=== PATIENT | male | born 1990 | race Caucasian/White ===

== ENCOUNTER 2017-09-28 19:44 | Emergency (ER) | payer SELFPAY ==
[~2017-09-28] VITALS: Ht 180.3 cm; Wt 75.1 kg
[2017-09-28 19:48] VITALS: BP 130/63; PULSE 81; RESP 18; TEMP 98.7; O2SAT 98
[2017-09-28] MEDS ORDERED: LYRI150C PO ×2 (20:02→20:14)
--- NOTE | 2017-09-28 20:16 | PD ---
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 Patient states his medications were lost with his luggage by the airline. He is just requesting a refill of his Lyrica 150 twice a day. He has no other problems. He has no known drug allergies. PFSH Past Medical History Diminished Hearing: No Medical other: Yes (neuropathy rt arm) Immunizations Current: Yes Tetanus Vaccination: Unknown Influenza Vaccination: Yes Past Surgical History Oral Surgery: Yes Social History Alcohol Use: No Tobacco Use: Yes ([place]) Substance Use: No Allergies-Medications (Allergen,Severity, Reaction): Coded Allergies: No Known Allergies (Unverified , 09/28/17) Reported Meds & Prescriptions Reported Meds & Active Scripts Active Lyrica (Pregabalin) 150 Mg Cap 150 Mg PO BID Review of Systems Except as stated in HPI: all other systems reviewed are Neg General / Constitutional: No: Fever Eyes: No: Visual changes HENT: No: Headaches Cardiovascular: No: Chest Pain or Discomfort Respiratory: No: Shortness of Breath Gastrointestinal: No: Abdominal Pain Genitourinary: No: Dysuria Musculoskeletal: Positive: Myalgias, Pain (see history of present illness.) Skin: No Rash Neurologic: No: Weakness Psychiatric: No: Depression Endocrine: No: Polydipsia Hematologic/Lymphatic: No: Easy Bruising Physical Exam Narrative GENERAL: Patient is in no acute distress. SKIN: Warm and dry. Normal color. Normal turgor. HEAD: Atraumatic. Normocephalic. EYES: Pupils equal and round. No scleral icterus. No injection or drainage. ENT: No nasal bleeding or discharge. Mucous membranes pink and moist. Thanks is clear. Airway is patent NECK: Trachea midline. Supple nontender. CARDIOVASCULAR: Regular rate and rhythm. RESPIRATORY: No accessory muscle use. MUSCULOSKELETAL: Extremities without clubbing, cyanosis, or edema. No obvious deformities. NEUROLOGICAL: Awake and alert. No obvious cranial nerve deficits. Motor grossly within normal limits. Five out of 5 muscle strength in the arms and legs. Normal speech. PSYCHIATRIC: Appropriate mood and affect; insight and judgment normal. Data Data Last Documented VS Vital Signs Date Time Temp Pulse Resp B/P (MAP) Pulse Ox O2 Delivery O2 Flow Rate FiO2 09/28/17 19:48 98.7 81 18 130/63 (85) 98 Orders Orders Ed Discharge Order (09/28/17 20:16) MDM Medical Decision Making Medical Screen Exam Complete: Yes Emergency Medical Condition: Yes Differential Diagnosis Medication refill. Neuralgia. Psychiatric symptoms. Narrative Course Patient is given a refill Lyrica 150 mg twice a day #30. Patient follow-up with local primary care physician for further refills as needed. Diagnosis Primary Impression: Encounter for medication refill Referrals: [facility] Primary Care Physician Patient Instructions: General Instructions Additional Instructions: Patient is given a refill Lyrica 150 mg twice a day #30. Patient follow-up with local primary care physician for further refills as needed. Med/Other Pt SpecificInfo: Prescription(s) given Scripts Pregabalin (Lyrica) 150 Mg Cap 150 MG PO BID, #30 CAP Prov: Ariel Brown MD 09/28/17 Disposition: 01 DISCHARGE HOME Condition: Stable Christian Gipson Sep 28, 2017 20:15
== END 2017-09-28 20:21 | disposition home or self-care (01) ==
LOC: PHEFT 19:44
DX: Z76.0 Encounter for issue of repeat prescription (principal)
CPT/HCPCS: 99281

== ENCOUNTER 2017-10-01 13:59 | Emergency (ER) | payer SELFPAY ==
[~2017-10-01] VITALS: Ht 180.3 cm; Wt 75.0 kg
[~2017-10-01 13:59] MED LIST: LYRI150C PO
[2017-10-01 14:19] VITALS: BP 124/57; PULSE 66; RESP 16; TEMP 97.9; O2SAT 97
--- NOTE | 2017-10-02 09:59 | PD ---
HPI Chief Complaint: Medication Refill Request Time Seen by Provider: 14:50 Travel History International Travel<30 days: No Contact w/Intl Traveler<30days: No Traveled to known affect area: No History of Present Illness HPI 27-year-old male with history presents emergency department requesting a refill of his gabapentin. He reports he takes a gabapentin for his neuropathy. He was seen on 09/28/17 in the emergency department and given a refill of Lyrica. Today he reports that it wasn't Lyrica he needed it was gabapentin. He does not have a local doctor. PFS Past Medical History Narrative Medical Neuropathy and chronic pain Diminished Hearing: No Medical other: Yes (NEUROPATHY) Immunizations Current: Yes Past Surgical History Oral Surgery: Yes Social History Alcohol Use: No Tobacco Use: Yes ([place]) Substance Use: No Allergies-Medications (Allergen,Severity, Reaction): Coded Allergies: No Known Allergies (Unverified , 10/01/17) Reported Meds & Prescriptions Reported Meds & Active Scripts Active Lyrica (Pregabalin) 150 Mg Cap 150 Mg PO BID Review of Systems Except as stated in HPI: all other systems reviewed are Neg General / Constitutional: No: Fever Eyes: No: Visual changes HENT: No: Headaches Cardiovascular: No: Chest Pain or Discomfort Respiratory: No: Shortness of Breath Gastrointestinal: No: Abdominal Pain Genitourinary: No: Dysuria Physical Exam Narrative GENERAL: Alert well-appearing male. SKIN: Warm and dry. HEAD: Normocephalic. EYES:No injection or drainage. NECK: Supple, trachea midline. MUSCULOSKELETAL: No cyanosis, or edema. Data Data Last Documented VS Vital Signs Date Time Temp Pulse Resp B/P (MAP) Pulse Ox O2 Delivery O2 Flow Rate FiO2 10/01/17 14:19 97.9 66 16 124/57 79 97 MDM Medical Decision Making Medical Screen Exam Complete: Yes Emergency Medical Condition: Yes Differential Diagnosis Medication refill, medication noncompliance, Narrative Course 27-year-old male here requesting refill of his gabapentin. Patient was seen several days prior for same. A medical screening exam was performed: At the time of evaluation the presenting medical condition was determined not to be of an emergent nature. The patient was given the option of receiving additional care, but declined. Patient was given options for additional community resources from which to obtain care. The Patient Has Been advised to seek medical attention for their presenting complaint. The patient has been advised to return to the ER at any time if an emergent condition develops. Diagnosis Primary Impression: Encounter for medical screening examination Referrals: [facility] Disposition: 01 DISCHARGE HOME Condition: Stable Judit Patel [facility] Oct 02, 2017 09:59
== END 2017-10-01 15:02 | disposition left against medical advice (07) ==
LOC: PHEFT 13:59
DX: Z76.0 Encounter for issue of repeat prescription (principal); G62.9 Polyneuropathy, unspecified; G89.29 Other chronic pain; F17.290 Nicotine dependence, other tobacco product, uncomplicated
CPT/HCPCS: 99281

== ENCOUNTER 2017-10-03 17:39 | Emergency (ER) | payer SELFPAY ==
[~2017-10-03] VITALS: Ht 180.3 cm; Wt 75.0 kg
[2017-10-03 17:39] VITALS: BP 120/58; PULSE 62; RESP 12; TEMP 98.6; O2SAT 99
[2017-10-03] MEDS ORDERED: NEUR800T PO (17:56)
--- NOTE | 2017-10-03 18:25 | PD ---
HPI . Hand pain Chief Complaint: Pain: Acute or Chronic Time Seen by Provider: 18:02 Travel History International Travel<30 days: No Contact w/Intl Traveler<30days: No Traveled to known affect area: No History of Present Illness HPI This patient presents with chronic right hand pain. He states that he has neuropathy in his hand. He reports that he just moved here from [place] a week ago. He is out of his Neurontin. He was seen here on 09/28 and requested a prescription for Lyrica which was provided to him. The patient states that he now realizes that Lyrica was his old medication and that he is currently on Neurontin for his feet. The patient presented back on 10/02 requesting the prescription for Neurontin. He was made an [facility] no. [facility] Neurontin. History Social History Alcohol Use: No Tobacco Use: No Allergies-Medications (Allergen,Severity, Reaction): Coded Allergies: No Known Allergies (Unverified , 10/03/17) Reported Meds & Prescriptions Reported Meds & Active Scripts Active Reported Neurontin (Gabapentin) 800 Mg Tab 800 Mg PO TID Review of Systems Except as stated in HPI: all other systems reviewed are Neg Musculoskeletal: Positive: Pain Neurologic: Positive: Paresthesia Physical Exam Narrative GENERAL: Awake and alert and in no acute distress. Very animated. SKIN: Warm and dry. HEAD: Normocephalic/atraumatic. EYES: Pupils are equal. Extraocular movements are intact. NECK: Normal range of motion. CARDIOVASCULAR: Regular rate and rhythm. RESPIRATORY: Nonlabored respirations. MUSCULOSKELETAL: Atraumatic. Hand has normal movement and normal color. NEUROLOGICAL: Nonfocal. PSYCHIATRIC: Appropriate mood and affect. Data Data Last Documented VS Vital Signs Date Time Temp Pulse Resp B/P (MAP) Pulse Ox O2 Delivery O2 Flow Rate FiO2 10/03/17 17:39 98.6 62 12 120/58 (78) 99 MDM Medical Screen Exam Complete: Yes Emergency Medical Condition: No Narrative Course A medical screening exam was performed: At the time of evaluation the presenting medical condition was determined not to be of an emergent nature. The patient was given the option of receiving additional care, but declined. Patient was given options for additional community resources from which to obtain care. The Patient Has Been advised to seek medical attention for their presenting complaint. The patient has been advised to return to the ER at any time if an emergent condition develops. Primary Impression: Encounter for medical screening examination Patient Instructions: General Instructions Departure Forms: Tests/Procedures Disposition: 01 DISCHARGE HOME Condition: Stable Olya Jiang MD Oct 03, 2017 18:25
== END 2017-10-03 18:35 | disposition left against medical advice (07) ==
LOC: NEPD 17:39
DX: M79.641 Pain in right hand (principal)
CPT/HCPCS: 99281